=== PATIENT | male | born 1975 | race Caucasian/White ===

== ENCOUNTER 2017-08-30 09:30 | Emergency (ER) | payer MEDICAID ==
[~2017-08-30] VITALS: Ht 180.3 cm; Wt 152.0 kg
[~2017-08-30 09:30] MED LIST: ENAL2.5T; TRIA25CA
[2017-08-30 09:38] VITALS: BP 157/94
[2017-08-30] MEDS ORDERED: KETOROLAC TROMETH 60MG/2ML VIAL IM ONE (10:45)
== END 2017-08-30 11:31 | disposition home or self-care (01) ==
LOC: ER 09:36
DX: S39.012A Strain of muscle, fascia and tendon of lower back, initial encounter (principal); M41.9 Scoliosis, unspecified; E11.9 Type 2 diabetes mellitus without complications; I10 Essential (primary) hypertension; F17.210 Nicotine dependence, cigarettes, uncomplicated; W18.39XA Other fall on same level, initial encounter; Y93.89 Activity, other specified; Y92.89 Other specified places as the place of occurrence of the external cause; Y99.8 Other external cause status
CPT/HCPCS: 72100; 96372; 99284; J1885

== ENCOUNTER 2020-02-16 23:06 | Emergency (ER) | payer MEDICAID ==
[~2020-02-16 23:06] MED LIST changes: -ENAL2.5T; +ENAL2.5T7
== END 2020-02-17 05:41 | disposition left against medical advice (07) ==
LOC: ER 23:06
DX: R10.9 Unspecified abdominal pain (principal); Z53.21 Procedure and treatment not carried out due to patient leaving prior to being seen by health care provider